=== PATIENT | male | born 1960 | race Caucasian/White ===

== ENCOUNTER 2016-07-28 14:36 | Emergency (ER) | payer BC ==
--- NOTE | 2016-07-28 15:36 | UC ---
Hand/Wrist HPI - HPI Summary HPI Summary: Patient has hx of gout in biltaeral feet and in his hands, feels like a flare up in the right middle finger. slightly swollen, but very tender to touch. denies fever. - History Of Current Complaint Chief Complaint: UCUpperExtremity Stated Complaint: RIGHT HAND MIDDLE FINGER Time Seen by Provider: 07/28/16 15:18 Hx Obtained From: Patient ?: No Onset/Duration: Sudden Onset, Lasting Days Severity Initially: Moderate Severity Currently: Moderate Alleviating: Nothing Associated Signs And Symptoms: Positive: Swelling, Numbness/Tingling - Allergies/Home Medications Allergies/Adverse Reactions: Allergies Allergy/AdvReac Type Severity Reaction Status Date / Time No Known Allergies Allergy Verified 07/28/16 15:08 PMH/Surg Hx/FS Hx/Imm Hx Previously Healthy: Yes Cardiovascular History Of: Reports: Hypertension - Surgical History Surgical History: Yes Surgery Procedure, Year, and Place: BILATERAL KNEE REPAIR. LEFT ELBOW REPAIR - Family History Known Family History: Positive: Hypertension - parents, Other - gout Negative: Cardiac Disease, Diabetes - Social History Alcohol Use: Occasionally Substance Use Type: None Smoking Status (MU): Former Smoker Type: Cigarettes, Cigars Amount Used/How Often: 7 CIGS PER WEEK Have You Smoked in the Last Year: Yes When Did the Patient Quit Smoking/Using Tobacco: 4 MOS AGO Household Exposure Type: Cigarettes Review of Systems Constitutional: Negative Skin: Negative Eyes: Negative ENT: Negative Respiratory: Negative Cardiovascular: Negative Gastrointestinal: Negative Genitourinary: Negative Motor: Negative Neurovascular: Negative Musculoskeletal: Arthralgia, Decreased ROM - right mid finger, Myalgia Neurological: Negative Psychological: Negative All Other Systems Reviewed And Are Negative: Yes Physical Exam Triage Information Reviewed: Yes Appearance: Well-Appearing, Well-Nourished, Pain Distress Vital Signs: Initial Vital Signs Temp 97.7 F 07/28/16 14:59 Pulse 70 07/28/16 14:59 Resp 16 07/28/16 14:59 BP 184/88 07/28/16 14:59 Pulse Ox 98 07/28/16 14:59 Vital Signs Reviewed: Yes Eye Exam: Normal Eyes: Positive: Conjunctiva Clear ENT: Positive: Hearing grossly normal, Pharynx normal, TMs normal Dental Exam: Normal Neck exam: Normal Neck: Positive: Supple, Nontender, No Lymphadenopathy Respiratory Exam: Normal Respiratory: Positive: Chest non-tender, Lungs clear, Normal breath sounds Cardiovascular Exam: Normal Cardiovascular: Positive: RRR, No Murmur, Pulses Normal Abdominal Exam: Normal Abdomen Description: Positive: Nontender, No Organomegaly, Soft Bowel Sounds: Positive: Present Musculoskeletal: Positive: Strength Limited @, ROM Limited @, Edema @ - in the middle right finger, PIP joint Neurological Exam: Normal Neurological: Positive: Alert, Muscle Tone Normal Psychological Exam: Normal Skin Exam: Normal Hand/Wrist Course/Dx - Course Course Of Treatment: hx obtained, exam performed, meds reviewed, given indomethacin for gout flare up. - Differential Dx/Diagnosis Differential Diagnosis/HQI/PQRI: Cellulitis, Contusion, Gout, Sprain, Strain, Tendonitis Provider Diagnoses: gout Discharge - Discharge Plan Condition: Stable Disposition: HOME Prescriptions: Indomethacin CAP* [Indocin CAP*] 50 mg PO TID PRN #15 cap PRN Reason: Pain Patient Education Materials: Gout (ED), Self-Care Measures with a Chronic Disease (ED) Additional Instructions: take the medication as prescribed. Increase fluid intake, FOllow up with Dr Michel on Monday.
[2016-07-28 15:40] VITALS: BP 184/88
== END 2016-07-28 15:49 | disposition home or self-care (01) ==
LOC: UCCORT 14:36
DX: M10.9 Gout, unspecified (principal); I10 Essential (primary) hypertension; Z87.891 Personal history of nicotine dependence
CPT/HCPCS: 99212; G0463

== ENCOUNTER 2016-08-31 12:33 | Emergency (ER) | payer BC ==
--- NOTE | 2016-08-31 12:59 | UC ---
Knee Pain HPI - HPI Summary HPI Summary: The patient comes in today for: 1. Right knee pain: Onset: 2 days ago. Palliative/provocative: Walking on it makes it worse. Quality: no pain at this time (sitting) but goes up to 10/10 with walking. Region: Right knee Severity: 0/10 with sitting. Time: Comes and goes. Associated symptoms: Event: 2 days ago, while coming down his deck steps, his dog ran underneath him causing him to twist on a planted foot. He had pain right then and there. He put ice on it and elevated for two days. He has been taking 400 mg/dose, 3 times/day for 3 times a day. Previous injury: He had a fractured patella before. * - History of Current Complaint Stated Complaint: RIGHT KNEE PAIN Time Seen by Provider: 08/31/16 12:53 Hx Obtained From: Patient - Allergies/Home Medications Allergies/Adverse Reactions: Allergies Allergy/AdvReac Type Severity Reaction Status Date / Time No Known Allergies Allergy Verified 08/31/16 13:14 Home Medications: Home Medications Acetaminophen [Eq Pain Reliever] 1,000 mg PO Q6H PRN 08/31/16 [History Confirmed 08/31/16] PMH/Surg Hx/FS Hx/Imm Hx Previously Healthy: No - ED Cardiovascular History: Hypertension - Surgical History Surgical History: Yes Surgery Procedure, Year, and Place: BILATERAL KNEE REPAIR. LEFT ELBOW REPAIR - Family History Known Family History: Positive: Hypertension - parents, Other - gout Negative: Cardiac Disease, Diabetes - Social History Occupation: Employed Full-time Alcohol Use: Occasionally Substance Use Type: None Smoking Status (MU): Former Smoker Type: Cigarettes Amount Used/How Often: 7 CIGS PER WEEK Have You Smoked in the Last Year: Yes When Did the Patient Quit Smoking/Using Tobacco: 3 weeks ago Household Exposure Type: Cigarettes Review of Systems Constitutional: Negative Skin: Negative Eyes: Negative ENT: Negative Respiratory: Negative Cardiovascular: Negative Gastrointestinal: Negative Genitourinary: Negative Musculoskeletal: Arthralgia All Other Systems Reviewed And Are Negative: Yes Physical Exam Triage Information Reviewed: Yes Appearance: Well-Appearing, No Pain Distress - When sitting., Well-Nourished Vital Signs: He has not taken his blood pressure medication for the last two days. He states that his systolic blood pressure has been as high as 200/xx before when off his medication. Vital Signs Reviewed: Yes Eyes: Positive: Conjunctiva Clear. Negative: Discharge ENT: Positive: Hearing grossly normal. Negative: Pharyngeal erythema, Nasal congestion, Nasal drainage, TM bulging, TM dull, TM red, Tonsillar swelling, Tonsillar exudate Dental: Negative: Gross Decay/Caries @, Dental Fracture @ Neck: Positive: Supple, Nontender, No Lymphadenopathy. Negative: Nuchal Rigidity Respiratory: Positive: Lungs clear, No respiratory distress, No accessory muscle use. Negative: Crackles, Wheezing Cardiovascular: Positive: RRR, No Murmur Abdomen Description: Positive: Nontender, No Organomegaly, Soft. Negative: Distended, Guarding Musculoskeletal: Positive: No Edema, ROM Limited @ - with flexion., Other: - There is a horizontal scar. There is no tenderness behind the knee or of the hamstring tendons. There is no tenderness to the palpation of the patella. There is slight tenderness to palpation of the right and left meniscii anteriorly. There is no laxity of the cruciate or collateral ligaments. Neurological: Positive: Alert, Muscle Tone Normal Psychological: Positive: Age Appropriate Behavior, Consolable Skin: Negative: rashes, breakdown Diagnostics - Radiology No standard instances Xray Interpretation: Positive (See Comments) - IMPRESSION: 1. REMOTE TRAUMA. 2. ADVANCED OSTEOARTHRITIS. 3. SUPRAPATELLAR JOINT EFFUSION. 4. SOFT TISSUE SWELLING. 5. NO ACUTE OSSEOUS INJURY. IF SYMPTOMS PERSIST, RECOMMEND REPEAT IMAGING Radiology Interpretation Completed By: Radiologist Knee Pain Course/Dx - Course Course Of Treatment: Results of the x-ray were discussed. He has an appointment with his primary care provider tomorrow and he has a professional relationship with Dr. Frederick. He wants to call him about his right knee. - Differential Dx/Diagnosis Provider Diagnoses: Right knee pain (osteoarthritis, suspected torn meniscus). Discharge - Discharge Plan Condition: Stable Disposition: HOME Patient Education Materials: Knee Pain (ED) Forms: *Work Release Referrals: Sowmya Michel MD [Primary Care Provider] - 1 Day (Please follow up with your primary care provider tomorrow for evaluation of your knee pain, treatment, and high blood pressure.) Johnnie Frederick MD [Medical Doctor] - As Soon As Possible (Please call Dr. Frederick' s office as soon as you can for evaluation of your knee.)
[2016-08-31] MEDS ORDERED: Ketorolac INJ* 60 MG/2 ML VIAL IM ONE (13:03)
--- NOTE | 2016-08-31 13:31 | RAD ---
HISTORY: Pain after twisting injury COMPARISONS: None VIEWS: 4, Frontal, lateral, axial, and oblique views of the right knee FINDINGS: BONE DENSITY: Normal. BONES: Cerclage wires are noted in the patella. There is no acute fracture. JOINTS: There is advanced tricompartment lesser arthritis. There is a moderate suprapatellar joint effusion. ALIGNMENT: There is no dislocation. SOFT TISSUES: There is prepatellar soft tissue swelling OTHER FINDINGS: None. IMPRESSION: 1. REMOTE TRAUMA. 2. ADVANCED OSTEOARTHRITIS. 3. SUPRAPATELLAR JOINT EFFUSION. 4. SOFT TISSUE SWELLING. 5. NO ACUTE OSSEOUS INJURY. IF SYMPTOMS PERSIST, RECOMMEND REPEAT IMAGING
[2016-08-31 13:45] VITALS: BP 184/107
== END 2016-08-31 14:19 | disposition home or self-care (01) ==
LOC: UCCORT 12:33
DX: M25.561 Pain in right knee (principal)
CPT/HCPCS: 96372; 99212; G0463; J1885

== ENCOUNTER 2016-11-04 08:13 | Emergency (ER) | payer BC ==
[2016-11-04 08:33] VITALS: BP 173/90
--- NOTE | 2016-11-04 09:19 | UC ---
Back Pain HPI - HPI Summary HPI Summary: 56 yo male states his left sciatica started acting up after yard work left low back pain/buttock pain radiating done left leg to foot no hx CA no bowel or bladder dysfunction - History of Current Complaint Chief Complaint: UCLowerExtremity Stated Complaint: LOWER BACK PAIN Time Seen by Provider: 11/04/16 08:46 Hx Obtained From: Patient Onset/Duration: Gradual Onset, Lasting Days Timing: Constant Severity Initially: Moderate Severity Currently: Moderate Pain Intensity: 5 Pain Scale Used: 0-10 Numeric Back Pain: Is Discrete @, Radiates To - left leg Character: Throbbing, Spasmodic, Stiffness Aggravating: Movement, Walking Alleviating: Rest Related History: Similar Episode Dx As - sciatica - Allergies/Home Medications Allergies/Adverse Reactions: Allergies Allergy/AdvReac Type Severity Reaction Status Date / Time No Known Allergies Allergy Verified 11/04/16 08:33 Home Medications: Home Medications Water Pill 1 tab PO DAILY 11/04/16 [History Confirmed 11/04/16] PMH/Surg Hx/FS Hx/Imm Hx Previously Healthy: Yes Cardiovascular History: Hypertension - Surgical History Surgical History: Yes Surgery Procedure, Year, and Place: BILATERAL KNEE REPAIR. LEFT ELBOW REPAIR - Family History Known Family History: Positive: Hypertension - parents, Other - gout Negative: Cardiac Disease, Diabetes - Social History Alcohol Use: Occasionally Substance Use Type: None Smoking Status (MU): Former Smoker Type: Cigarettes Amount Used/How Often: 7 CIGS PER WEEK Have You Smoked in the Last Year: Yes When Did the Patient Quit Smoking/Using Tobacco: 3 weeks ago Household Exposure Type: Cigarettes Review of Systems Constitutional: Negative Skin: Negative Eyes: Negative ENT: Negative Respiratory: Negative Cardiovascular: Negative Gastrointestinal: Negative Genitourinary: Negative Motor: Negative Neurovascular: Negative Musculoskeletal: Myalgia Neurological: Negative Psychological: Negative All Other Systems Reviewed And Are Negative: Yes Physical Exam Triage Information Reviewed: Yes Appearance: Well-Appearing, No Pain Distress, Well-Nourished Vital Signs: Initial Vital Signs Temp 98.3 F 11/04/16 08:23 Pulse 91 11/04/16 08:23 Resp 18 11/04/16 08:23 BP 173/90 11/04/16 08:23 Vital Signs Reviewed: Yes Eyes: Positive: Conjunctiva Clear ENT: Positive: Hearing grossly normal. Negative: Nasal congestion, Nasal drainage, Trismus, Muffled/hoarse voice Neck: Positive: Supple, Nontender, No Lymphadenopathy Respiratory: Positive: Lungs clear, Normal breath sounds, No respiratory distress, No accessory muscle use Cardiovascular: Positive: RRR, No Murmur Musculoskeletal: Positive: Other: - both knees with surgical scars/unable to fully extend left knee Neurological: Positive: Alert Psychological Exam: Normal Skin Exam: Normal Back Pain Course/Dx - Differential Dx/Diagnosis Provider Diagnoses: sciatica (suspect non discogenic) Discharge - Discharge Plan Condition: Stable Disposition: HOME Prescriptions: Cyclobenzaprine TAB* [Flexeril 10 MG TAB*] 5 mg PO TID PRN #12 tab PRN Reason: Spasms Patient Education Materials: Sciatica (ED) Forms: *Work Release Referrals: Sowmya Michel MD [Primary Care Provider] - Additional Instructions: muscle relaxer will cause drowsiness don't take and drive or work Images Front/Back of Body, Lg ([place]): 1 - pain starts here/(-) SLR 2 - radiates here
== END 2016-11-04 09:23 | disposition home or self-care (01) ==
LOC: UCCORT 08:13
DX: M54.42 Lumbago with sciatica, left side (principal); I10 Essential (primary) hypertension; Z87.891 Personal history of nicotine dependence
CPT/HCPCS: 99212; G0463

== ENCOUNTER 2017-07-01 10:48 | Emergency (ER) | payer BC ==
[2017-07-01 12:12] VITALS: BP 173/117
--- NOTE | 2017-07-01 12:24 | UC ---
Lower Extremity/Ankle HPI - HPI Summary HPI Summary: 57 year old male with ankle pain . c/o L ankle pain that pt states is a flare up of gout that he has had in the past. He states he is out of any medication for the gout. Pt states he recent drove back from [place] (06/29/17) from visiting family, was off his diet and did not take his B/P meds. Also while in [place] had increase alcohol and seafood. this feels similar to previous flare gout up and previous medication worked very well per patient [ End ] - History of Current Complaint Chief Complaint: UCLowerExtremity Stated Complaint: LEFT ANKLE Time Seen by Provider: 07/01/17 12:16 Hx Obtained From: Patient Onset/Duration: Sudden Onset Severity Initially: Moderate Severity Currently: Moderate Pain Intensity: 7 Aggravating Factor(s): Standing, Ambulation Alleviating Factor(s): Rest Able to Bear Weight: Yes - Risk Factors Gout Risk Factors: Age Over 40, Male, Hypertension - Allergies/Home Medications Allergies/Adverse Reactions: Allergies Allergy/AdvReac Type Severity Reaction Status Date / Time No Known Allergies Allergy Verified 07/01/17 12:12 Home Medications: Home Medications Hydrochlorothiazide TAB* [Hydrodiuril TAB*] 25 mg PO DAILY 07/01/17 [History Confirmed 07/01/17] PMH/Surg Hx/FS Hx/Imm Hx Previously Healthy: Yes Cardiovascular History: Hypertension - Surgical History Surgical History: Yes Surgery Procedure, Year, and Place: BILATERAL KNEE REPAIR. LEFT ELBOW REPAIR - Family History Known Family History: Positive: Hypertension - parents, Other - gout Negative: Cardiac Disease, Diabetes - Social History Lives: With Family Alcohol Use: Rare Substance Use Type: None Smoking Status (MU): Former Smoker Type: Cigarettes, Cigars Amount Used/How Often: 7 CIGS PER WEEK Have You Smoked in the Last Year: Yes When Did the Patient Quit Smoking/Using Tobacco: 3 weeks ago Household Exposure Type: Cigarettes Review of Systems Constitutional: Negative Skin: Negative Eyes: Negative ENT: Negative Respiratory: Negative Cardiovascular: Negative Gastrointestinal: Negative Genitourinary: Negative Motor: Negative Neurovascular: Negative Musculoskeletal: Arthralgia, Decreased ROM, Edema Neurological: Negative Psychological: Negative Is Patient Immunocompromised?: No All Other Systems Reviewed And Are Negative: Yes Physical Exam Triage Information Reviewed: Yes Appearance: Well-Appearing, Well-Nourished, Pain Distress - mild Vital Signs: Initial Vital Signs Temp 97.2 F 07/01/17 12:03 Pulse 132 07/01/17 12:03 Resp 18 07/01/17 12:03 BP 173/117 07/01/17 12:03 Pulse Ox 100 07/01/17 12:03 Vital Signs Reviewed: Yes Eye Exam: Normal ENT: Positive: Hearing grossly normal Neck: Positive: 1 Respiratory Exam: Normal Cardiovascular Exam: Normal Abdominal Exam: Normal Musculoskeletal Exam: Normal Neurological Exam: Normal Psychological Exam: Normal Skin: Positive: Other - right medial malleolus with redness, tenderness , swelling . peripheral pulses brisk , cap refill WNL. no break in skin . no scchymosis. no streaking. Lower Extremity Course/Dx - Course Course Of Treatment: reviewed previous ED notes and had colcrys and per patient this worked well for him. no report of kidney concerns, BP elevated but he stopped taking BP meds as of late and advised to resume , low purine low sodium diet, f/u with PCP and may need different BP med. he is aware and agreeable. Aware of risks of meds and aware of risks of elevated BP, he is not symptomatic at this time for the elevated BP - Differential Dx/Diagnosis Differential Diagnosis/HQI/PQRI: Sprain, Strain, Other - gout Provider Diagnoses: 1.Gout right ankle. 2. Hypertension Discharge - Sign-Out/Discharge Documenting (check all that apply): Discharge - Discharge Plan Condition: Good Disposition: HOME Prescriptions: Colchicine* [Colcrys*] 0.6 mg PO SEE INSTRUCTIONS #10 tab Patient Education Materials: Gout (ED), Low Purine Diet (ED) Referrals: Sowmya Michel MD [Primary Care Provider] - 4 Days Additional Instructions: You may want to discuss with your PCP medication for gout prophylaxis - Billing Disposition and Condition Condition: GOOD Disposition: HOME
== END 2017-07-01 12:41 | disposition home or self-care (01) ==
LOC: UCCORT 10:48
DX: M10.9 Gout, unspecified (principal); I10 Essential (primary) hypertension; Z87.891 Personal history of nicotine dependence
CPT/HCPCS: 99212; G0463